=== PATIENT | female | born 1975 | race Caucasian/White ===

== ENCOUNTER 2020-06-22 14:59 | Outpatient (RCR) | payer OTHER, SELFPAY ==
--- NOTE | 2020-06-22 15:41 | PTOPEVAL ---
Thank you for referring Tiera Nava to [facility].? The patient is scheduled to be seen for therapy? __3__x/week for _4__ weeks. Please review, sign, date and return this plan of care FAWN. I agree with and certify that the following plan of care is medically necessary. Referring Physician Date Admitting Provider: Attending Provider: PHYSICIAN NOT ON STAFF Referring Provider: *PT Outpatient Evaluation Start: 06/22/20 15:06 Freq: Status: Active Protocol: Document 06/22/20 15:08 ASIF (Rec: 06/22/20 15:37 ASIF [id number]) Therapy Assessment Status Assessment Status Assessment Status Evaluation Evaluation Information Problem Diagnosis neck pain Onset 11/22/19 Subjective Information Pt. reports that she began Query Text:As Reported By Patient/ noting neck pain on the left Family side. She states that pain has progressed and now has developed numbness into both arms and pain into the upper trap. she reports MRI study showed DDD, herniated disc and spinal stenosis of the neck. She states that she works from her computer and states that her pain will increase when on the computer. 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 Dominance Right Activity of Daily Living Ability Independent Indoor/Home Mobility Independent Community Mobility Independent Stairs Ability Independent Functional Cognition (Planning, Shopping Independent , Taking Medications) Cooking Yes Cleaning Yes Laundry Yes Shopping Yes Driving Yes Pain Assessment Pain Scale Pain Scale Used Numeric (1 - 10) Self Report Pain Assessment Neck Reported Pain Level 5 Pain Description Aching,Numbness Lowest Pain Intensity 5 Greatest Pain Intensity 8 Pain Aggravating Factors Sitting,Supine Other Pain Aggravating Factors driving Pain Relief Interventions Used By Medication Patient Other Alleviating Interventions pt. takes aleve to ease pain Pain Score Pain Score 5: Self Report Cervical and Lumbar ROM Cervical ROM Cervical Flexion (0-60)
== END 2020-07-23 10:20 | disposition home or self-care (01) ==
LOC: CHSPT 14:59
PROVIDERS: PCP Family Medicine
DX: R93.7 Abnormal findings on diagnostic imaging of other parts of musculoskeletal system (principal)
CPT/HCPCS: 97014; 97110; 97140; 97161; G0283

== ENCOUNTER 2024-09-18 17:12 | Emergency (ER) | payer SELFPAY ==
--- NOTE | ~2024-09-18 | XR_ITS ---
EXAMINATION: XR foot RT min 3V DATE: 09/18/2024 17:46 INDICATION: Right foot pain. TECHNIQUE: 4 views of right foot were obtained. COMPARISON: None. FINDINGS: There is moderate hallux valgus. No fracture. There is mild osteoarthritis of talonavicular joint and first metatarsophalangeal joint. There is an enthesophyte at plantar aspect of calcaneal t uberosity. IMPRESSION: 1. Moderate hallux valgus. 2. Mild polyarticular osteoarthritis. 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
--- NOTE | ~2024-09-18 | XR_ITS ---
EXAMINATION: XR ankle RT min 3V DATE: 09/18/2024 17:46 INDICATION: Anterior right ankle pain. TECHNIQUE: 4 views of right ankle were obtained. COMPARISON: None. FINDINGS: Alignment is normal. No fracture. There is mild osteoarthritis of talonavicular joint. Ther e is an enthesophyte at plantar aspect of calcaneal tuberosity. IMPRESSION: 1. Mild osteoarthritis of talonavicular joint. 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
[2024-09-18 17:16] VITALS: BP 127/93; RESP 18; TEMP 36.7; O2SAT 100
--- NOTE | 2024-09-18 17:24 | ED_ITS ---
HPI - Extremity Injury (Lower) General Chief Complaint: Extremity Injury, Lower Stated Complaint: right foot pain Source: patient Mode of arrival: ambulatory Limitations: no limitations History of Present Illness HPI Narrative: 49-year-old female with a history of hypertension, dyslipidemia, eczema dropped drill on her right foot at 1:00 p.m. today. She presents to the ED with -- right foot/ ankle pain -- swelling around the right lateral malleolus unable to bear weight no other injuries noted MD complaint: ankle injury and foot injury Onset (ago): hour(s) ( 4 hours ago) Injury: Right: ankle and foot Type of Injury: blunt Place: home Severity: moderate Relieving factors: immobilization Exacerbating factors: movement Associated symptoms: swelling Other symptoms: none Treatments prior to arrival: cold therapy Related Data Home Medications ?Medication ?Instructions ?Recorded ?Confirmed ?Last Taken ?Type atorvastatin 40 mg tablet mg 09/18/24 Unknown History bupropion HCl 300 mg 24 hr tablet, mg PO 09/18/24 Unknown History extended release metoprolol succinate 50 mg mg PO 09/18/24 Unknown History tablet,extended release 24 hr Allergies Allergy/AdvReac Type Severity Reaction Status Date / Time bismuth subsalicylate (From Allergy Intermediate rash Verified 09/18/24 17:19 Pepto-Bismol) Review of Systems Review of Systems: All systems reviewed & are unremarkable except as noted in HPI and below Constitutional: Constitutional: Reports as per HPI and Reports no additional constitutional complaints Eyes: Eyes: Reports as per HPI and Reports no additional eye complaints ENT: Reports system reviewed and no additional complaints, except as documented and Reports as per HPI Cardiovascular: Cardiovascular: Reports as per HPI and Reports no additional cardiovascular complaints Respiratory: Respiratory: Reports as per HPI and Reports no additional respiratory complaints Gastrointestinal: Gastrointestinal: Reports as per HPI and Reports no additional gastrointestinal complaints Musculoskeletal: Comments: right foot/ankle pain Integumentary/Breasts: Comments: erythematous rash over her lower extremities Neurologic: Reports system reviewed and no additional complaints, except as documented Psychiatric: Psychiatric: Reports no additional psychiatric complaints Endocrine: Endocrine: Reports no additional endocrine complaints Hematologic/Lymphatic: Hematologic/Lymphatic: Reports no additional hematologic/lymphatic complaints Allergic/Immunologic: Allergic/Immunologic: Reports no additional allergic/immunologic complaints [facility] Past Medical History Medical History (Updated 09/18/24 @ 18:11 by Jesse Whitaker MD) Eczema Dyslipidemia Hypertension Exam Narrative: blood pressure is 127/93. Const: General: no acute distress Nutritional Appearance: well nourished Orientation/consciousness: patient oriented x3 Limitations: no limitations HENMT: Head: normal to inspection Ears: external ears normal Face/Nose/Sinus: Normal external nose present Face and sinus: normal facial exam Mouth: Yes Normal oral and palatal mucosa present Throat: posterior oropharynx normal Eyes: Conjunctivae: conjunctivae normal Pupils: Equal, round and reactive pupils present EOM: EOMs intact bilaterally Direct Ophthalmoscopy: no photophobia Neck: Neck: normal visual inspection and no lymphadenopathy Chest: Chest palpation & inspection: normal inspection of the chest Resp: Effort & Inspection: normal respiratory effort Auscultation: clear to auscultation bilaterally Cardio: Rate: regular rate Rhythm: regular rhythm GI: GI Palp: Yes Soft to palpation Other: No tenderness/rigidity Back/Spine/Pelvis: Back: no CVA tenderness Skin: Other: raised erythematous lesions on her feet. Neuro: General: patient oriented x3, moves all extremities, no meningeal signs, no focal motor deficits and CN's II-XI intact bilaterally Extrem: Other: Tenderness over the right lateral malleolus with swelling tenderness over the proximal foot decreased range of motion around the ankle and the foot. Psych: Mental Status: mental status grossly normal Affect: normal affect Attitude: cooperative Course Course Emergency Course: Right ankle sprain-- x-ray did not show any acute fracture/ dislocation. Polyarticular arthritis. right foot pain- Vital Signs Vital signs: Vital Signs Temperature 36.7 C 09/18/24 17:16 Respiratory Rate 18 09/18/24 17:16 Blood Pressure 127/93 H 09/18/24 17:16 Pulse Oximetry 100 09/18/24 17:16 Oxygen Delivery Room Air 09/18/24 17:16 Temperature 36.7 C 09/18/24 17:16 Respiratory Rate 18 09/18/24 17:16 Blood Pressure 127/93 H 09/18/24 17:16 Pulse Oximetry 100 09/18/24 17:16 Oxygen Delivery Room Air 09/18/24 17:16 MDM - Extremity Injury (Lower) MDM Narrative Medical decision making narrative: Right ankle /foot sprain-- no fracture noted Differential Diagnosis Differential diagnosis: Likely ankle fracture Discharge Plan Discharge Clinical Impression: Ankle sprain and strain Foot sprain Qualifiers: Encounter type: initial encounter Laterality: right Qualified Code(s): S93.601A - Unspecified sprain of right foot, initial encounter Patient Disposition: Home, Self-Care Condition: Stable Instructions: Antibiotic Form, Ankle Sprain (ED), Arthralgia (ED) Additional Instructions: 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 Patient Language: Italian Prescriptions: No Action atorvastatin 40 mg tablet metoprolol succinate 50 mg tablet extended release 24 hr PO bupropion HCl 300 mg tablet extended release 24 hr PO Follow-up/Referrals: Nazario Robles M.D. [Primary Care Provider] - Time of Disposition: 18:12
[2024-09-18 18:21] VITALS: BP 122/94; PULSE 89; RESP 18; TEMP 36.5; O2SAT 98
[2024-09-18] MEDS: HYDROcodone/acetaminophen (*CRX) 5-325 MG TABLET 1 TAB PO (18:57)
== END 2024-09-18 19:01 | disposition home or self-care (01) ==
PROVIDERS: Emergency Provider Internal Medicine Critical Care Medicine; PCP Family Medicine
DX: S93.601A Unspecified sprain of right foot, initial encounter (principal); S93.401A Sprain of unspecified ligament of right ankle, initial encounter; S96.911A Strain of unspecified muscle and tendon at ankle and foot level, right foot, initial encounter; I10 Essential (primary) hypertension; E78.5 Hyperlipidemia, unspecified; Z79.899 Other long term (current) drug therapy; W22.8XXA Striking against or struck by other objects, initial encounter
CPT/HCPCS: 29515; 73610; 73630; 99283; A9270; L4350